=== PATIENT | male | born 1955 | race Caucasian/White ===

== ENCOUNTER 2020-01-06 00:48 | Day surgery (SDC) | payer MEDICARE, SELFPAY ==
[2020-01-01 14:38] VITALS: BMI 23.4
[2020-01-06 08:37] VITALS: BP 152/75; PULSE 59; RESP 16; TEMP 36.9; O2SAT 98
--- NOTE | 2020-01-06 08:50 | P.PNAN_ITS ---
Anes - Initial Pre Proc Eval Procedure: Operation Date: 01/06/20 09:30 Proposed Procedures p Screening Colonoscopy - Tyler Blood MD Date/Time: 01/06/20 08:50 Surgeon: Tyler Blood MD Pre Op Diagnosis: Neoplasm Screening Patient Data Age: 64 Gender: M Height: 5 ft 7 in Weight: 71.2 kg Last Vital Signs Temp 98.4 F 01/06/20 08:37 Pulse 59 L 01/06/20 08:37 Resp 16 01/06/20 08:37 BP 152/75 H 01/06/20 08:37 Pulse Ox 98 01/06/20 08:37 Allergies Allergy/AdvReac Type Severity Reaction Status Date / Time No Known Allergies Allergy Unverified 01/06/20 08:36 Home Medications Medication Instructions Recorded Confirmed Type losartan 50 mg PO DAILY 01/01/20 01/06/20 History Patient hx anesthesia problems: none Family hx anesthesia problems: none [facility] Past Medical History Medical History (Updated 01/06/20 @ 08:41 by Shaq Staton MD) Hypertension Social History Social History Smoking status: Never smoker Alcohol intake: never Gender identity (if verbalized by the patient): Male Anes - Eval Final PreProcedure Day of Procedure 01/06/20 08:50 Patient weight: normal Heart: regular rate and rhythm Lungs: clear to auscultation Airway: Mallampati scale class II Neurological: alert and oriented Last oral intake: >/= 8 hours ASA classification: II Emergent: no Anesthetic plan: proceed Anesthesia type and monitoring: general GIVS and standard monitoring Informed Consent: The patient's anesthetic plan and its attendant risks and benefits were discussed with the patient/family/POA. Questions were solicited and answers provided to the satisfaction of the patient/family/POA.
[2020-01-06] MEDS: LACTATED RINGERS 1,000 ML 150 ML IV CONT (08:52)
--- NOTE | 2020-01-06 09:32 | PM.HPGS ---
History of Present Illness History of Present Illness Consent: Risks, benefits, and alternatives have been discussed and questions answered. Patient agrees to proceed with procedure. Chief complaint: Neoplasm Screening Narrative: Ephraim Deng is a 64 year old male here for his first screening colonoscopy Review of Systems Constitutional: Constitutional: Denies headache(s) and Denies weakness Eyes: Eyes: Denies blurry vision ENT: Reports Normal hearing present, Denies headache(s) and Denies neck pain Cardiovascular: Cardiovascular: Denies chest pain and Denies dyspnea Respiratory: Respiratory: Denies dyspnea Gastrointestinal: Gastrointestinal: Reports no additional gastrointestinal complaints Genitourinary: Genitourinary: Denies dysuria Musculoskeletal: Musculoskeletal: Denies neck pain Integumentary/Breasts: Skin/Breast: Denies dry skin Neurologic: Reports Normal hearing present, Denies headache(s) and Denies weakness Psychiatric: Psychiatric: Denies anxiety Endocrine: Endocrine: Denies change in body appearance Hematologic/Lymphatic: Hematologic/Lymphatic: Denies easy bleeding Allergic/Immunologic: Allergic/Immunologic: Denies urticaria [facility] Past Medical History Medical History (Updated 01/06/20 @ 09:33 by Tyler Blood MD) Colon cancer screening Hypertension Social History Social History Smoking status: Never smoker Alcohol intake: never Gender identity (if verbalized by the patient): Male Meds Home Medications and Allergies Home Medications Medication Instructions Recorded Confirmed Type losartan 50 mg PO DAILY 01/01/20 01/06/20 History Allergies Allergy/AdvReac Type Severity Reaction Status Date / Time No Known Allergies Allergy Unverified 01/06/20 08:36 Vital Signs Vital Signs - 24 hr 01/06/20 08:37 Temperature 98.4 F Pulse Rate 59 L Respiratory Rate 16 Blood Pressure 152/75 H Pulse Oximetry 98 Exam Const: General: comfortable and no acute distress HENMT: General nose exam: Normal nares present Eyes: General: appearance normal, both eyes and all related structures Neck: Neck: no JVD Resp: Auscultation: clear to auscultation bilaterally Cardio: Rate: regular rate Rhythm: regular rhythm GI: Inspection: non-distended GI Palp: Yes Soft to palpation Skin: General skin exam: normal color Neuro: General: gait normal Speech: normal speech Extrem: General: normal to inspection Psych: Mental Status: mental status grossly normal Assessment and Plan Assessment and plan (1) Colon cancer screening: Code(s): Z12.11 - Encounter for screening for malignant neoplasm of colon Status: Acute Assessment and Plan: will proceed with colonoscopy (2) Hypertension: Qualifiers: Hypertension type: essential hypertension Qualified Code(s): I10 - Essential (primary) hypertension Code(s): I10 - Essential (primary) hypertension Status: Acute
[2020-01-06 09:49] VITALS: BP 106/62; PULSE 59; RESP 18; O2SAT 98
[2020-01-06 09:59] VITALS: BP 112/59; PULSE 60; RESP 18; O2SAT 99
[2020-01-06 10:09] VITALS: BP 128/77; PULSE 58; RESP 18; O2SAT 99
== END 2020-01-06 10:22 | disposition home or self-care (01) ==
PROVIDERS: PCP Internal Medicine; Visit Provider Internal Medicine Gastroenterology
PROC: 0DJD8ZZ Inspection of Lower Intestinal Tract, Via Natural or Artificial Opening Endoscopic (ICD-10-PCS; CPT 45378; principal; 2020-01-06 09:30)
DX: Z12.11 Encounter for screening for malignant neoplasm of colon (principal); D12.3 Benign neoplasm of transverse colon; K57.30 Diverticulosis of large intestine without perforation or abscess without bleeding; K64.8 Other hemorrhoids; I10 Essential (primary) hypertension
CPT/HCPCS: 45385; 88305; J2704; J7120

== ENCOUNTER → 2020-06-08 10:56 | Outpatient (REF) | payer MEDICARE, SELFPAY | LOC: ANHLAB 10:56 | PROVIDERS: PCP Internal Medicine; Visit Provider Nurse Practitioner | DX: C44.311 Basal cell carcinoma of skin of nose (principal) | CPT/HCPCS: 88305 ==

== ENCOUNTER → 2020-07-19 08:01 | Outpatient (REF) | payer MEDICARE, SELFPAY | LOC: ANHLAB 08:01 | PROVIDERS: PCP Internal Medicine; Visit Provider Nurse Practitioner | DX: C44.311 Basal cell carcinoma of skin of nose (principal) | CPT/HCPCS: 88305; 88331 ==

== ENCOUNTER 2023-08-15 14:50 | Emergency (ER) | payer MEDICARE, SELFPAY ==
[2023-08-15] VITALS (18 sets, daily range): BP systolic 141–161; BP diastolic 63–77; PULSE 51–62; RESP 12–24; TEMP 36.6; O2SAT 95–100
--- NOTE | ~2023-08-15 | CT_ITS ---
EXAMINATION: CT brain wo con DATE: 08/15/2023 17:52 INDICATION: Dizziness, lightheadedness TECHNIQUE: Computed tomography (CT) of the head was performed without intravenous contrast. The mA wa s adjusted according to patient size. Iterative reconstruction technique was employed. Exam dose: 60 5.33 mGy-cm total exam DLP. COMPARISON: None FINDINGS: Bilateral carotid siphon internal carotid artery calcifications. No intracranial mass lesion or hemorrhage or cerebrovascular accident, midline shift or mass effect i s detected. No subdural or epidural hematoma. The mastoid air cells and included paranasal sinuses are normally aerated. No fracture or bone destruction of the cranial vault. IMPRESSION: Cerebral atherosclerosis; no acute intracranial finding Reviewed, dictated and finalized at [facility] Reviewed, dictated and finalized at [facility].
--- NOTE | 2023-08-15 15:12 | ECG_ITS ---
Measurements Intervals [place] Rate: 51 P: 65 DE: 176 QRS: 15 QRSD: 100 T: 36 QT: 422 QTc: 391 Interpretive Statements SINUS BRADYCARDIA LEFT ATRIAL ENLARGEMENT BORDERLINE R WAVE PROGRESSION, ANTERIOR LEADS BORDERLINE ECG NO PREVIOUS ECG AVAILABLE FOR COMPARISON Electronically Signed On 08-15-2023 15:42:17 CDT by Marlon Valencia D.O.
[2023-08-15 15:28] LABS: Basophils Percent Auto 0.2 % (0.2-1.2); Eosinophils Percent Auto 0.3 % (0-4.4); Hematocrit 47.2 % (42.0-52.0); Hemoglobin 15.9 g/dL (14.0-18.0); Immature Granulocyte Absolute 0.05 K/mm3 (0.00-0.031); Immature Granulocyte Percent A 0.4 % (0-0.5); Lymphocytes Absolute Auto 0.92 K/mm3 (0.9-3.2); Lymphocytes Percent Auto 7.6 % (18.3-44.2); Mean Corpuscular HGB Conc 33.7 g/dl (32-36); Mean Corpuscular Hemoglobin 31.6 pg (26-34); Mean Corpuscular Volume 93.8 fl (80-100); Mean Platelet Volume 9.6 fl (7.4-10.4); Monocytes Absolute Auto 0.4 K/mm3 (0.1-0.6); Monocytes Percent Auto 3.1 % (2.6-8.5); Neutrophils Absolute Auto 10.7 K/mm3 (1.3-6.7); Neutrophils Percent Auto 88.4 % (45.5-73.1); Platelet Count Result 199 k/mm3 (150-375); Red Blood Count 5.03 M/mm3 (4.6-6.20); Red Cell Distribution Width 12.3 % (11.5-14.5); White Blood Count 12.1 K/mm3 (4.5-10.0)
[2023-08-15 15:41] LABS: Alanine Aminotransferase 26 U/L (6-50); Albumin Level 4.1 g/dL (3.5-5.1); Alkaline Phosphatase 63 U/L (38-126); Anion Gap 3 mmol/L (8-16); Aspartate Amino Transferase 28 U/L (17-59); Bilirubin,Total 1.1 mg/dL (0.2-1.3); Blood Urea Nitrogen 22 mg/dL (9-20); Calcium 9.3 mg/dL (8.4-10.2); Carbon Dioxide 30 mmol/L (22-30); Chloride 104 mmol/L (98-107); Estimated CRCL calculation 64 ml/min; Estimated Glomerular Filt Rate > 60; Glucose 115 mg/dL (65-110); Potassium 4.4 mmol/L (3.4-5.0); Sodium 137 mmol/L (137-145)
[2023-08-15] MEDS: SODIUM CHLORIDE 0.9% IV 1,000 ML 999 ML IV CONT (16:02)
[2023-08-15] MEDS: MECLIZINE HCL 25 MG TABLET PO (16:02)
--- NOTE | 2023-08-15 17:36 | ED.GENADULT ---
HPI - General Adult General Chief complaint: Dizziness Stated complaint: dizzy/vomiting/doesnt feel right Time Seen by Provider: 08/15/23 15:44 Related Data Allergies Allergy/AdvReac Type Severity Reaction Status Date / Time No Known Allergies Allergy Verified 08/03/23 09:14 Review of Systems Review of Systems: All systems reviewed & are unremarkable except as noted in HPI and below Constitutional: Constitutional: Denies chills, Denies fatigue and Denies fever(s) ENT: Reports dizziness, Denies nasal congestion and Denies sore throat Cardiovascular: Cardiovascular: Denies chest pain, Denies rapid heart rate and Denies radiating jaw, neck or arm pain Respiratory: Respiratory: Denies cough and Denies dyspnea Gastrointestinal: Gastrointestinal: Denies abdominal pain, Reports nausea and Reports vomiting Neurologic: Reports dizziness, Denies syncope, Denies focal weakness and Denies numbness PMFSH Past Medical History Medical History Colon cancer screening Hypertension Need for vaccination Surgical History Surgical History H/O colonoscopy 12/2019 repeat 5 years Family History Family History Mother Cancer Father Heart disease Social History Social History Smoking status: Never smoker Alcohol intake: never Substance use: never Living arrangements: with family Occupation/Education: occupation 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 HEAD: Normocephalic, atraumatic. EYES: PERRL and EOMI. ENT: Mucous membranes moist. CHEST: Clear to auscultation. No respiratory distress. HEART: Regular rate and rhythm. Normal peripheral pulses. ABDOMEN: Soft, nontender, nondistended. EXTREMITIES: Normal range of motion. No edema. SKIN: Warm, dry, no rash. NEURO: No focal deficits. Alert and oriented x3. No upper or lower extremity drift. Normal finger-nose testing. Normal nbps-pc-odso testing. Ambulates with a steady gait. No facial asymmetry. No dysarthria or expressive aphasia. PSYCH: Normal mood and affect. Course Course Emergency Course: Patient resting comfortably. Dizziness improved with meclizine and fluids. He is not nauseous at this time. He has been up and ambulatory without issue and feels as if he can go home with additional medication. No focal neurologic deficit on exam. Vital Signs Vital signs: Vital Signs Temperature 97.9 F 08/15/23 15:07 Pulse Rate 51 L 08/15/23 15:07 Respiratory Rate 18 08/15/23 15:07 Blood Pressure 141/63 H 08/15/23 15:07 Pulse Oximetry 100 08/15/23 15:07 Oxygen Delivery Room Air 08/15/23 15:07 Temperature 97.9 F 08/15/23 15:07 Pulse Rate 53 L 08/15/23 15:54 Respiratory Rate 18 08/15/23 15:07 Blood Pressure 160/77 H 08/15/23 15:54 Pulse Oximetry 100 08/15/23 15:07 Oxygen Delivery Room Air 08/15/23 15:07 Medical Decision Making Vital Signs Vital Signs: Vital Signs Temperature 97.9 F 08/15/23 15:07 Pulse Rate 51 L 08/15/23 15:07 Respiratory Rate 18 08/15/23 15:07 Blood Pressure 141/63 H 08/15/23 15:07 Pulse Oximetry 100 08/15/23 15:07 Oxygen Delivery Room Air 08/15/23 15:07 Temperature 97.9 F 08/15/23 15:07 Pulse Rate 53 L 08/15/23 15:54 Respiratory Rate 18 08/15/23 15:07 Blood Pressure 160/77 H 08/15/23 15:54 Pulse Oximetry 100 08/15/23 15:07 Oxygen Delivery Room Air 08/15/23 15:07 Lab Data 08/15/23 15:21 08/15/23 15:21 Labs: Lab Results 08/15/23 Range/Units 15:21 WBC 12.1 H (4.5-10.0) K/mm3 RBC 5.03
== END 2023-08-15 18:46 | disposition home or self-care (01) ==
PROVIDERS: Emergency Provider Emergency Medicine; PCP Family Medicine
DX: R42 Dizziness and giddiness (principal); I10 Essential (primary) hypertension; I67.2 Cerebral atherosclerosis; R00.1 Bradycardia, unspecified; R94.31 Abnormal electrocardiogram [ECG] [EKG]
CPT/HCPCS: 36415; 70450; 80053; 85025; 93005; 96360; 99284; A9270; J7030

== ENCOUNTER 2024-10-12 10:24 | Outpatient (CLI) | payer MEDICARE, SELFPAY ==
--- NOTE | ~2024-10-12 | MR_ITS ---
MRI of the brain and internal auditory canals Clinical History: Headache Technique: Axial and sagittal T1-weighted images were acquired. These were followed by axial T2-weigh karthik, diffusion weighted, gradient, and FLAIR images. Thin cut T1-weighted and T2-weighted images thro ugh the internal auditory canals were performed. Findings: There is no acute infarct, intracranial hemorrhage, or mass lesion. There are minimal chron ic white matter changes bilaterally. Ventricles and subarachnoid spaces are nondilated. Orbits are unremarkable. Paranasal sinuses are kirk ar. Mastoid air cells are clear. Major intracranial flow voids are intact. Sagittal midline structures are intact. No abnormal mass lesion seen at the internal auditory canal/cerebellopontine angle regions. IMPRESSION: No abnormal mass lesion seen at the internal auditory canals/cerebellopontine angle regions. No acute infarct or intracranial hemorrhage. Minimal chronic white matter disease. Reviewed, dictated and finalized at [facility]. NCIAL ADVISOR IMPRESSION: No abnormal mass lesion seen at the internal auditory canals/cerebellopontine a ngle regions. No acute infarct or intracranial hemorrhage. Minimal chronic white matter disease.
== END 2024-10-12 10:25 | disposition home or self-care (01) ==
LOC: ANHIMG 10:25
PROVIDERS: PCP Nurse Practitioner Family; Visit Provider Nurse Practitioner Family
DX: R51.9 Headache, unspecified (principal); H91.91 Unspecified hearing loss, right ear
CPT/HCPCS: 70551

== ENCOUNTER 2025-02-10 01:28 | Day surgery (SDC) | payer MEDICARE, SELFPAY ==
[2025-02-02 12:02] VITALS: BMI 23.4
--- NOTE | 2025-02-04 14:17 | PC.NURSE ---
1415-Note on chart that pt was having woozy spells and following up with the Neurologist on 02/03/25. Spoke with patient's to see how the appt went and how Wes is feeling. She said he's feeling great, hasn't had any spells for 2 months, and going to follow up with an ENT at [facility].
--- OUTSIDE RECORDS SUMMARY | 2025-02-10 01:31 | XMS_ITS | Clinical Summary ---
Author Organization [facility] [address] Address [address] [facility] [address] Phone Care Team Providers Care Resort Housekeeper Name Role Phone Unavailable Primary Care Provider Unavailabl e Medications amLODIPine (NORVASC) 2.5 mg tablet Take 1 Tablet by mouth daily. 05/20/2024 Active Active Problems Problem Noted Date Diagnosed Date Sinus bradycardia 07/01/2024 Encounters Date Type Department Care Team Description 02/02/2025 External Device Data STL ABSTRACTION Provider, Abstract 01/20/2025 External Device Data STL ABSTRACTION Provider, Abstract 12/17/2024 External Device Data ST[facility] ABSTRACTION Provider, Abstract 12/16/2024 External Device Data ST[facility] ABSTRACTION Provider, Abstract 12/09/2024 External Device Data ST[facility] ABSTRACTION Provider, Abstract from Last 3 Months Social History Tobacco Use Types Packs/Day Years Used Date Smoking Tobacco: Never Sex and Gender Information Value Date Recorded Sex Assigned at Not on file Legal Sex Male 10:47 AM CDT Gender Identity Not on file Sexual Orientation Not on file Last Filed Vital Signs Vital Sign Reading Time Taken Comments Blood Pressure 150/80 06/25/2024 9:48 AM CDT Pulse 53 06/25/2024 9:48 AM CDT Temperature - - Respiratory Rate - - Oxygen Saturation 96% 06/25/2024 9:48 AM CDT Inhaled Oxygen Concentration - - Weight 70.8 kg (156 lb) 06/25/2024 9:48 AM CDT Height 170.2 cm (5' 7 ) 06/25/2024 9:48 AM CDT Body Mass Index 24.43 06/25/2024 9:48 AM CDT Plan of Treatment Health Maintenance Due Date Last Done Comments FIT-DNA Q 3 years 1999 FIT/FOBT Q 1 year 1999 Flex Sig/CT Colonography Q 5 years 1999 PNEUMOCOCCAL VACCINE 50+ YEA RS (1 of 1 - PCV) 2004 ZOSTER VACCINE (1 of 2) 2004 INFLUENZA VACCINE (#1) 2024 COVID-19 Vaccine (5 - 2023-2 5 season) 2024 03/17/2022, 10/17/2021, 02/24/2021, Additional history exists DTAP/TDAP/TD VACCINES (2 - T d or Tdap) 08/21/2026 08/21/2016 RSV VACCINE (60+ or ) (1 - 1-dose 75+ series) 2029 COLORECTAL SCREENING 01/06/2030 01/06/2020 Colorectal Cancer Screening 01/06/2030 Procedures Procedure Name Priority Date/Time Associated Diagnosis Comments TSH REFLEXIVE Routine 11/24/2024 2:00 PM REGIONAL CLIMATE CHANGE ANALYST Sinus bradycardia DE (dyspnea on exertion) Dizziness Benign hypertension from Last 3 Months Results * TSH REFLEXIVE (11/24/2024 2:00 PM REGIONAL CLIMATE CHANGE ANALYST) TSH 1.16 0.40 - 4.50 mIU/L [facility] Comment: Test Performed at: [employer] [facility] [address] [place] [address] Heather Singh MD Blood 11/24/2024 2:00 PM REGIONAL CLIMATE CHANGE ANALYST 11/24/2024 2:00 PM REGIONAL CLIMATE CHANGE ANALYST us Carlos Alvarado MD CHEMISTRY ORDERABLES Final Re sult [facility] [phone] [facility] [address] [place] [address] from Last 3 Months Insurance MEDICARE PART A AND B Retail Info
--- OUTSIDE RECORDS SUMMARY | 2025-02-10 01:31 | XMS_ITS | Referral Summary ---
Author Organization [facility] [address] Address [address] [place] [address] Care Team Providers Care Research Animal Facility Supervisor Name Role Phone Madeline Otero NP Primary Care Provider [phone] Encounters Date Type Department Care Team Description 12/16/2024 Telephone [facility] [address] [place] [address] [facility] [address] [place] [address] [place] [id number] Sangita Dumont 12/12/2024 Telephone [facility] [address] [place] [address] Advanced [facility] 11th [place] [address] [place] [id number] Sangita Dumont 12/06/2024 Orders Only [facility] [address] [place] [address] Advanced [facility] 11th [place] [address] [place] [id number] Bee Obrien Au.D. Dizziness (Primary Dx) 12/06/2024 Telephone [facility] [address] [place] [address] Advanced [facility] 11th [place] [address] [place] [address] Bee Obrien Au.D. from Last 3 Months Allergies No known active allergies Medications losartan (COZAAR) 50 mg tablet Take 1 tablet (50 mg total) by mouth daily Active Active Problems Problem Noted Date Diagnosed Date Sensorineural hearing loss, asymmetrical 023 Bilateral impacted cerumen 06/29/2023 Tinnitus of both ears 06/29/2023 Social History Tobacco Use Types Packs/Day Years Used Date Smoking Tobacco: Never Smokeless Tobacco: Never Tobacco Cessation:Counseling Given: Not Answered AUDIT-C Answer Date Recorded Q1: How often do you have a drink containing alcohol? Never 06/29/2023 Q2: How many drinks containi ng alcohol do you have on a typical day when you are drinking? Patient does not drink Frequency of Binge Drinking Not on file 02/2023 Sex and Gender Information Value Date Recorded Sex Assigned at Not on file Legal Sex Male 9:49 AM CDT Gender Identity Not on file Sexual Orientation Not on file Last Filed Vital Signs Vital Sign Reading Time Taken Comments Blood Pressure - - Pulse - - Temperature - - Respiratory Rate 20 06/29/2023 10:12 AM CDT Oxygen Saturation - - Inhaled Oxygen Concentration - - Weight 68 kg (150 lb) 06/29/2023 10:12 AM CDT Height 170.2 cm (5' 7 ) 06/29/2023 10:12 AM CDT Body Mass Index 23.49 06/29/2023 10:12 AM CDT Plan of Treatment Not on file Insurance MEDICARE [employer] Care Teams Research Animal Facility Supervisor Relationship Specialty Start Date End Date Madeline Otero NP [address] [place] [id number] PCP - General Nurse Practitioner 05/23/23
--- OUTSIDE RECORDS SUMMARY | 2025-02-10 01:31 | XMS_ITS | Clinical Summary ---
Author Organization [facility] Address [facility] [place] [address] Care Team Providers Care Advertising Inserter Name Role Phone None, Provider MD Primary Care Provider Unavaila ble Allergies No known active allergies Medications losartan (COZAAR) 50 MG tablet Take 1 tablet (50 mg total) by mouth daily. Active Active Problems Problem Noted Date Diagnosed Date Dizziness and giddiness 12/16/2024 Sinus bradycardia 07/01/2024 Encounters Date Type Department Care Team Description 02/03/2025 10:00 AM CDT Office Visit [facility] [address] [facility], [address] [place] [address] Edelmira Monet NP Follow Up (headache/) 02/03/2025 Travel 01/19/2025 Telephone [facility] [address] [facility], [address] [place] [address] Edelmira Monet, BABS Results 01/17/2025 7:49 AM SNUBBER - 01/17/2025 11:59 PM SNUBBER Hospital Encounter [facility] [place] [address] [place] [address] Edelmira Monet NP Discharge Disposition: Home or Self Care (Routine Discharge) 01/17/2025 Travel 01/12/[address], [address] [place] [address] Edelmira Monet, BABS Results 01/09/2025 11:20 AM SNUBBER - 01/09/2025 11:59 PM SNUBBER Hospital Encounter [facility] [place] [place] [address] Edelmira Monet NP Discharge Disposition: Home or Self Care (Routine Discharge) 01/09/2025 Travel 12/16/2024 12:53 PM SNUBBER - 12/16/2024 11:59 PM SNUBBER Hospital Encounter [facility] [address] [place] [address] Iraida Gutierrez, PT Edelmira Monet, BABS Dizziness (11/26) Discharge Disposition: Home or Self Care (Routine Discharge) 12/16/2024 Travel 12/05/2024 1:00 PM SNUBBER Office Visit [facility] - [address], [address] [place] [address] Edelmira Monet NP Establish Care (Headaches pressure/wooziness /When has episodes he does not drive. ) 12/05/2024 Travel from Last 3 Months Immunizations Name Administration Dates Next Due MODERNA COVID-19 (12+) MRNA, LNP-S, PF, 100 MCG/ 0.5 ML DOSE 02/24/2021,01/27/2021 MODERNA COVID-19 ([employer]ELOP[employer]GER [employer]OOD SARITA), MRNA, LNP-S, PF, 50 MCG/ 0.25 ML DOSE 03/17/2022,10/17/2021 Tdap (Generic) 08/21/2016 Family History Medical History Relation Comments [place] Father Relation Status Comments Father Social History Tobacco Use Types Packs/Day Years Used Date Smoking Tobacco: Never Smokeless Tobacco: Never Alcohol Use Standard Drinks/Week Comments Never 0 (1 standard drink = 0.6 oz pur e alcohol) PHQ-2 Answer Date Recorded Patient Health Questionnaire-2 Score 0 02/03/2025 Sex and Gender Information Value Date Recorded Sex Assigned at Male 01/09/2025 11:20 AM SNUBBER Legal Sex Male 8:26 PM CDT Gender Identity Not on file Sexual Orientation Not on file Last Filed Vital Signs Vital Sign Reading Time Taken Comments Blood Pressure 119/68 02/03/2025 10:49 AM CDT Pulse 54 02/03/2025 10:25 AM CDT Temperature 36.4 C (97.5 F) 02/03/2025 10:25 AM CDT Respiratory Rate 24 06/22/2023 6:30 PM CDT Oxygen Saturation 99% 02/03/2025 10:25 AM CDT Inhaled Oxygen Concentration - - Weight 70.8 kg (156 lb 1.6 oz) 02/03/2025 10:25 AM CDT Height 170.2 cm (5' 7 ) 02/03/2025 10:25 AM CDT Body Mass Index 24.45 02/03/2025 10:25 AM CDT Plan of Treatment Upcoming Encounters Date Type Department Care Team (Late st Contact Info) Description 08/11/2025 10:40 AM CDT Office Visit [facility] - [facility] [address] [facility], [address] [place] [phone] Edelmira Monet NP [address] [facility] [address] [place] [address] Health Maintenance Due Date Last Done Comments Colorectal Cancer Screening Colonoscopy (10 Years) 1954 Hepatitis C 1972 Zoster Vaccines (1 of 2) 2004 Annual Medicare Wellness Visit 2019 Pneumococcal Vaccine: 65+ Years (1 of 1 - PCV) 2019 COVID-19 Vaccine ( - season) 2024 11/16/2022, 03/17/2022, 10/17/2021, Additional history exists Influenza Adult (#1) 2024 DTaP, Tdap and Td Vaccines (2 - Td or Tdap) 08/21/2026 08/21/2016 RSV Immunization or 60+ Years (1 - 1-dose 75+ series) 2029 PHQ-2 (Physician [place]) Completed 02/03/2025 Meningococcal B Vaccine Aged Out No l onger eligible based on patient's age to complete this topic Meningococcal Vaccine Aged Out No kannan teresita eligible based on patient's age to complete this topic RSV Immunizations Under 20 Months Aged Out No longer eligible based on patient's age to complete this topic Procedures Procedure Name Priority Date/Time Associated Diagnosis Comments MRA NECK WWO CON Routine 01/17/2025 8:38 AM SNUBBER Vertebral artery thrombosis, 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 No hemodynamically significant stenosis identified in the neck. Referred By: EDELMIRA MONET Interpreted By: Chun Stweart MD, 01/17/2025 1:25 PM Narrative 01/17/2025 1:28 PM SNUBBER [address] [address] INDICATION: Vertebral artery stenosis EXAMINATION: MRA of the neck with and without contrast. TECHNIQUE: Multiplanar and multisequence MRA images of the neck were obtained before and after uneventful intravenous administration of 14 mL Dotarem. Both the source images and 3-D/MIP images were reviewed. Percent carotid stenosis measured per NASCET criteria. COMPARISON: None FINDINGS: Aorta and great vessels: Classic 3 vessel aortic arch origin anatomy. Mediastinal great vessels patent and without significant stenosis. Right carotid: No significant stenosis. Vascular tortuosity.. Left carotid: No significant stenosis. Vascular tortuosity.. Right vertebral artery: No significant stenosis. Vascular tortuosity. Left vertebral artery: No significant stenosis. Vascular tortuosity. Xfvv-[id number]-ayufca images reveal patent antegrade flow related enhancement in the carotid and vertebral arteries in the neck. Partially imaged portions of the intracranial compartment reveal gross patency of the intracranial ICA segments, vertebral artery V4 segments and basilar artery, and proximal portions of the anterior, middle, and posterior cerebral arteries. 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 Procedure Note Chun Stewart MD - 01/17/[address] [address] INDICATION: Vertebral artery stenosis EXAMINATION: MRA of the neck with and without contrast. TECHNIQUE: Multiplanar and multisequence MRA images of the neck were obtained beforeand after uneventful intravenous administration of 14 mL Dotarem. Both thesource images and 3-D/MIP images were reviewed. Percent carotid stenosismeasured per NASCET criteria. COMPARISON: None FINDINGS: Aorta and great vessels: Classic 3 vessel aortic arch origin anatomy.Mediastinal great vessels patent and without significant stenosis. Right carotid: No significant stenosis. Vascular tortuosity.. Left carotid: No significant stenosis. Vascular tortuosity.. Right vertebral artery: No significant stenosis. Vascular tortuosity. Left vertebral artery: No significant stenosis. Vascular tortuosity. Fgkq-dr-ejraoa images reveal patent antegrade flow related enhancement inthe carotid and vertebral arteries in the neck. Partially imaged portions of the intracranial compartment reveal grosspatency of the intracranial ICA segments, vertebral artery V4 segments andbasilar artery, and proximal portions of the anterior, middle, andposterior cerebral arteries. Possible fenestration of the inferior basilarartery. IMPRESSION: 1. No hemodynamically significant stenosis identified in the neck. Referred By: EDELMIRA MONET Interpreted By: Chun Stewart MD, 01/17/2025 1:25 PM us Edelmira Monet ELECT EQUIP MAINT ENG MRI Final Result * EEG awake or drowsy routine (01/09/2025 12:00 PM SNUBBER) Narrative [facility] - 01/09/2025 12:00 PM SNUBBER J Carlos Bautista MD 01/12/2025 9:36 AM EEG REPORT Type of EEG study: Extended EEG with video (>60min). Requesting Provider: Edelmira Monet NP Date of Study: 01/12/2025 Reason for EEG: Mr. Deng is a 69-year-old male with history of HTN and sinus bradycardia who presents with lightheadedness, imbalance, tinnitus, and head pressure. Technical Description and EEG Findings This is a 21-channel EEG recording utilizing the standard international 10-20 electrode placement along with additional electrodes to monitor eye movements; a single ECG channel was also utilized to record ECG. Bipolar and referential montages were utilized for analysis. EEG description: Awake: In the waking state, a continuous generalized medium-amplitude mixed-frequency background was noted; a symmetric posterior dominant rhythm of 10 Hz was recorded in the occipital regions bilaterally. The posterior dominant rhythm attenuated with eye opening and enhanced with eye closure. Drowsiness: There was waxing and waning of posterior dominant rhythm with appearance of diffuse synchronous and asynchronous theta-alpha activity during drowsiness. Provocative maneuvers: Photic stimulation: Intermittent photic stimulation produced Provocative maneuvers photic stimulation: symmetrical bi-occipital response ECG: Single ECG channel showed regular cardiac rhythm. Impression/Clinical Correlation This extended EEG (>60) recorded in awake and drowsy states is normal. Of note, a normal EEG does not rule out seizure/epilepsy. us Edelmira Monet NP NEUROLOGY ORDERABLES Final R esult [facility] [address] [place] [address], from Last 3 Months Insurance MEDICARE [facility] Care Teams Advertising Inserter Relationship Specialty Start Date End Date None, Provider, PCP - General UNKNOWN PHYSICIAN SPECIALTY 03/28/23
--- OUTSIDE RECORDS SUMMARY | 2025-02-10 01:31 | XMS_ITS | Clinical Summary ---
Author Organization [facility] Address [address] [place] [address] Care Team Providers Care Clerk Typist Name Role Phone Unavailable Primary Care Provider Unavailabl e Social History Tobacco Use Types Packs/Day Years Used Date Smoking Tobacco: Never Assessed Sex and Gender Information Value Date Recorded Sex Assigned at Not on file Legal Sex Male 2:18 PM STRADDLE BUG Gender Identity Not on file Sexual Orientation Not on file Plan of Treatment Health Maintenance Due Date Last Done Comments Hepatitis C Virus (HCV) Screening 1954 Colonoscopy 1999 Colorectal Cancer Screening 1999 Cologuard 2004 Immunochemical Fecal Occult Blood 2004 Pneumococcal Immunization (5 0+ years) (1 of 1 - PCV) 2004 Zoster Immunization (1 of 2) 2004 PSA Discussion 2009 Influenza Immunization (#1) 2024 SARS-COV-2 Immunization (1 - season) 2024 Respiratory Syncytial Virus (RSV) Immunization (Adult) (1 - 1-dose 75+ series) 2029 DTaP/Tdap/Td Immunization Discontinued 08/21/2016 TdaP Immunization Completed 08/21/2016 Hepatitis B Immunization Aged Out No longer eligible based on patient's age to complete this topic Meningococcal Immunization (ACWY) Aged Out No longer eligible based on patient's age to complete this topic Rotavirus Immunization Aged Out No lo nger eligible based on patient's age to complete this topic
--- OUTSIDE RECORDS SUMMARY | 2025-02-10 01:31 | XMS_ITS | Clinical Summary ---
Author Organization [facility] [address] [employer] Address [address] [place] [address] Care Team Providers Care Dry Placer Machine Operator Name Role Phone Madeline Otero NP Primary Care Provider [phone] Allergies No known active allergies Medications losartan (COZAAR) 50 mg tablet Take 1 tablet (50 mg total) by mouth daily Active Active Problems Problem Noted Date Diagnosed Date Sensorineural hearing loss, asymmetrical 023 Bilateral impacted cerumen 06/29/2023 Tinnitus of both ears 06/29/2023 Encounters Date Type Department Care Team Description 12/16/2024 Telephone [facility] Ot[facility]ology [address] [place] [address] Medicine [address] [place] [address] [place] [phone] Sangita Dumont 12/12/2024 Telephone [facility] Otolaryngology [address] [place] [address] Medicine 11th [place] [address] [place] [phone] Sangita Dumont 12/06/2024 Orders Only [facility] Otolaryngology [address] [place] [address] 11th [place] [address] [place] [phone] Bee Obrien Au.D. Dizziness (Primary Dx) 12/06/2024 Telephone [facility] Otolaryngology [address] [place] [address] Medicine [address]th [place] [address] [place] [phone] Bee Obrien Au.D. from Last 3 Months Medical History Medical History Date Comments HL (hearing loss) Tinnitus Social History Tobacco Use Types Packs/Day Years [...] on file Sexual Orientation Not on file Obstetrics History Last Filed Vital Signs Vital Sign Reading [...] 06/29/2023 10:12 AM CDT Plan of Treatment Health Maintenance Due Date Last Done Comments Colon Cancer Screening-Colonoscopy 1954 Depression Screening 1954 Fall Risk Assessment 1954 Hepatitis C Screening 1954 Hepatitis B Screening 1972 Pneumococcal vaccine 65+ (1 of 1 - PCV) 2004 Zoster Vaccine (1 of 2) 2004 Abdominal Aortic Aneurysm (A AA) Screen 2019 Well Visit 65+ 2019 Covid-19 Vaccine (6 - 2023-2 5 season) 2024 11/16/2022, 03/17/2022, 10/17/2021, Additional history exists Influenza Vaccine (#1) 2024 08/29/2022 DTaP/Tdap/Td Vaccine (2 - Td or Tdap) 08/21/2026 08/21/2016 Insurance MEDICARE Archiver's MEDICARE [employer] [facility] MEDICARE Address: [address] [address] [place] [address] Care Teams Dry Placer Machine Operator Relationship Specialty Start Date End Date Madeline Otero NP [address] [place] [address] PCP - General Nurse Practitioner 05/23/23
[2025-02-10 12:59] VITALS: BP 146/69; PULSE 56; RESP 18; TEMP 36.3; O2SAT 98
[2025-02-10] MEDS: LACTATED RINGERS 1,000 ML 150 ML IV CONT (13:10)
--- NOTE | 2025-02-10 13:14 | P.PNAN_ITS ---
Anes - Initial Pre Proc Eval Procedure: Operation Date: 02/10/25 14:30 Proposed Procedures p Colonoscopy - Tyler Blood MD Date/Time: 02/10/25 13:14 Surgeon: Tyler Blood MD Pre Op Diagnosis: screening colon Patient Data Age: 69 Gender: M Height: 1.7 m Weight: 68.6 kg Last Vital Signs Temp 36.3 C L 02/10/25 12:59 Pulse 56 L 02/10/25 12:59 Resp 18 02/10/25 12:59 BP 146/69 H 02/10/25 12:59 Pulse Ox 98 02/10/25 12:59 O2 Del Method Room Air 02/10/25 12:59 Allergies Allergy/AdvReac Type Severity Reaction Status Date / Time No Known Allergies Allergy Verified 02/10/25 12:59 Home Medications ?Medication ?Instructions ?Recorded ?Confirmed ?Type losartan 25 mg tablet 25 mg PO DAILY #90 tabs 12/29/24 02/10/25 Rx Patient hx anesthesia problems: none Family hx anesthesia problems: none Results Review: All pre-operative results and documents have been reviewed as part of the pre-op erative evaluation. [facility] Past Medical History Medical History Hypertension Surgical History Surgical History H/O colonoscopy 12/2019 repeat 5 years Family History Family History Mother Cancer Father Heart disease Social History Social History Social History: 12/19/24 very confident with medical forms Smoking status: Never smoker Alcohol intake: never Substance use: never Do You Feel Safe in your Home?: Yes Lack of Transportation: No Lack of Food: Never True Current Housing: I Have Housing Concerned About Future Housing: No Difficulty Paying Gas/Electric Bills: No Difficulty Paying for Meds: No Currently Unemployed: No Education: Master's Degree or Higher Difficulty w/ Childcare or Family Care: No Living arrangements: with family Occupation/Education: occupation Additional occupation/education comments: sorter packer Gender identity (if verbalized by the patient): Male Spiritual care concerns: Yes Agree to blood products: No Anes - Eval Final PreProcedure Day of Procedure 02/10/25 13:14 Patient weight: normal Heart: bradycardia Lungs: clear to auscultation Airway: Mallampati scale class II Neurological: alert and oriented Last oral intake: >/= 8 hours ASA classification: II Emergent: no Anesthetic plan: proceed Anesthesia type and monitoring: general GIVS and standard monitoring Results Review: All pre-operative results and documents have been reviewed as part of the pre- operative evaluation. Informed Consent: The patient's anesthetic plan and its attendant risks and benefits were discussed with the patient/family/POA. Questions were solicited and answers provided to the satisfaction of the patient/family/POA.
--- NOTE | 2025-02-10 13:26 | P.HP_ITS ---
History of Present Illness History of Present Illness Consent: Risks, benefits, and alternatives have been discussed and questions answered. Patient agrees to proceed with procedure. Chief complaint: screening colon Narrative: Ephraim Deng is a 69 year old male with colon polyp in 2019 Review of Systems Review of Systems: All systems reviewed & are unremarkable except as noted in HPI and below PMFSH Past Medical History Medical History (Updated 02/10/25 @ 13:26 by Tyler Blood MD) Colon polyp Hypertension Surgical History Surgical History H/O colonoscopy 12/2019 repeat 5 years Family History Family History Mother Cancer Father Heart disease Social History Social History Social History: 12/19/24 very confident with medical forms Smoking status: Never smoker Alcohol intake: never Substance use: never Do You Feel Safe in your Home?: Yes Lack of Transportation: No Lack of Food: Never True Current Housing: I Have Housing Concerned About Future Housing: No Difficulty Paying Gas/Electric Bills: No Difficulty Paying for Meds: No Currently Unemployed: No Education: Master's Degree or Higher Difficulty w/ Childcare or Family Care: No Living arrangements: with family Occupation/Education: occupation 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 Gender identity (if verbalized by the patient): Male Spiritual care concerns: Yes Agree to blood products: No Meds Home Medications and Allergies Home Medications ?Medication ?Instructions ?Recorded ?Confirmed ?Type losartan 25 mg tablet 25 mg PO DAILY #90 tabs 12/29/24 02/10/25 Rx Allergies Allergy/AdvReac Type Severity Reaction Status Date / Time No Known Allergies Allergy Verified 02/10/25 12:59 Vital Signs Vital Signs - 24 hr 02/10/25 12:59 Temperature 97.4 F L Pulse Rate 56 L Respiratory Rate 18 Blood Pressure 146/69 H Pulse Oximetry 98 Oxygen Delivery Room Air Exam Const: General: comfortable and no acute distress HENMT: Face/Nose/Sinus: Normal nares present Eyes: General: appearance normal, both eyes and all related structures Neck: Neck: no JVD Resp: Auscultation: clear to auscultation bilaterally Cardio: Rate: regular rate Rhythm: regular rhythm GI: Inspection: non-distended GI Palp: Yes Soft to palpation Skin: General skin exam: normal color Neuro: General: gait normal Speech: normal speech Extrem: General: normal to inspection Psych: Mental Status: mental status grossly normal Assessment and Plan Assessment and plan (1) Colon polyp: Code(s): K63.5 - Polyp of colon Status: Acute Assessment and Plan: colonoscopy
[2025-02-10 13:36] VITALS: BP 122/60; PULSE 55; RESP 20; O2SAT 97
[2025-02-10 13:46] VITALS: BP 120/61; PULSE 55; RESP 21; O2SAT 97
[2025-02-10 13:56] VITALS: BP 124/56; PULSE 51; RESP 17; O2SAT 100
== END 2025-02-10 14:03 | disposition home or self-care (01) ==
PROVIDERS: PCP Nurse Practitioner Family; Referring Provider Nurse Practitioner Family; Visit Provider Internal Medicine Gastroenterology
PROC: 0DJD8ZZ Inspection of Lower Intestinal Tract, Via Natural or Artificial Opening Endoscopic (ICD-10-PCS; CPT 45378; principal; 2025-02-10 14:30)
DX: Z12.11 Encounter for screening for malignant neoplasm of colon (principal); K57.30 Diverticulosis of large intestine without perforation or abscess without bleeding; Z86.0100 Personal history of colon polyps, unspecified
CPT/HCPCS: G0105; J2704; J7120